=== PATIENT | male | born 1955 | race Caucasian/White ===

== ENCOUNTER 2021-02-21 16:57 | Inpatient (IN) | payer MEDICARE, MEDICAID ==
[~2021-02-21] VITALS: Ht 167.6 cm; Wt 47.7 kg
--- NOTE | 2021-02-21 17:34 | NUR ---
TO CT SCAN VIA [facility]NEST WITH TECH
[2021-02-21 18:34] LABS: BASOPHILS % (AUTO) 0.6 % (0-1); EOSINOPHILS % (AUTO) 0.1 % (0-6); HEMATOCRIT 43.5 % (42.0-52.0); HEMOGLOBIN 14.7 g/dl (14.0-17.9); LYMPHOCYTES # (AUTO) 1.1 X10'3 (1.1-4.8); LYMPHOCYTES % (AUTO) 24.2 % (21-51); MEAN CORPUSCULAR HEMOGLOBIN 33.9 PG (27.0-31.0); MEAN CORPUSCULAR HGB CONC 33.9 g/dL (33.0-36.5); MEAN CORPUSCULAR VOLUME 100.1 FL (78-98); MEAN PLATELET VOLUME 7.9 FL (7.4-10.4); MONOCYTES # (AUTO) 0.4 X10'3 (0-0.9); MONOCYTES % (AUTO) 9.7 % (2-12); NEUTROPHILS % (AUTO) 65.4 % (42-75); PLATELET COUNT 244 X10'3 (140-440); RED BLOOD COUNT 4.34 X10'6 (4.70-6.10); RED CELL DISTRIBUTION WIDTH 14.8 % (11.5-14.5); WHITE BLOOD COUNT 4.6 X10'3 (4.5-11.0)
[2021-02-21 18:38] LABS: PARTIAL THROMBOPLASTIN TIME 27 SECONDS (22-32)
[2021-02-21 18:40] LABS: ALANINE AMINOTRANSFERASE 19 U/L (12-78); ALBUMIN 3.6 G/DL (3.4-5.0); ALBUMIN/GLOBULIN RATIO 1.1 (1.1-1.5); ALKALINE PHOSPHATASE 85 IU/L (46-116); ANION GAP 12 (8-16); ASPARTATE AMINO TRANSFERASE 23 U/L (10-37); BILIRUBIN,TOTAL 0.3 MG/DL (0.1-1.0); BLOOD UREA NITROGEN 5 MG/DL (7-18); BUN/CREATININE RATIO 6.3 (5.4-32.0); CALCIUM 8.4 MG/DL (8.5-10.1); CHLORIDE 94 MMOL/L (99-107); CREATININE 0.79 MG/DL (0.60-1.10); GLUCOSE 99 MG/DL (70-104); POTASSIUM 4.3 MMOL/L (3.5-5.1); SODIUM 132 MMOL/L (135-145); TOTAL CARBON DIOXIDE 26.2 MMOL/L (24-32); eGFR > 90 ML/MIN
[2021-02-21 18:49] LABS: ETHANOL 0.217 GM/DL (0.0-0.010)
[2021-02-21] MEDS ORDERED: normal saline 1000ml 1,000 ML IV ONE (19:25)
[2021-02-21] MEDS ORDERED: NO HOME MEDS (19:46)
[2021-02-21] MEDS ORDERED: potassium Cl 40MEQ/1/2NS 520ml 520 ML IV PRN ×2 (20:30)
[2021-02-21] MEDS: normal saline 1000ml 1,000 ML IV SCH (20:30)
[2021-02-21] MEDS ORDERED: magnesium Cl slow-release 64mg tablet PO PRN (20:30)
[2021-02-21] MEDS ORDERED: magnesium 4gm in 100ml NS 100 ML IV PRN (20:30)
[2021-02-21] MEDS ORDERED: acetaminophen 325mg tablet PO PRN (20:30)
[2021-02-21] MEDS ORDERED: potassium Cl 20 mEq SR tablet PO PRN ×2 (20:30)
[2021-02-21] MEDS ORDERED: magnesium 2GM in 50ml NS 50 ML IV PRN (20:30)
[2021-02-21] MEDS: ondansetron/PF 4mg/2ml inj IV PRN (21:19)
[2021-02-21] MEDS: morphine 2 MG/ML inj. syringe IV PRN (21:20)
[2021-02-21 21:32] LABS: UA COLLECTION TYPE URINAL
[2021-02-21 21:33] LABS: CLARITY,URINE CLEAR (Clear); COLOR,URINE YELLOW (Yellow); GLUCOSE, URINE NEGATIVE (Neg); PROTEIN,URINE NEGATIVE (Neg)
[2021-02-21 21:34] LABS: KETONES,URINE NEGATIVE (Neg); LEUKOCYTE ESTERASE ,URINE NEGATIVE (Neg); NITRITES, URINE NEGATIVE (Neg); OCCULT BLOOD,URINE NEGATIVE (Neg); UROBILINOGEN,URINE 0.2 E.U/dL (0.2-1.0)
--- NOTE | 2021-02-21 21:59 | NUR ---
PT PLACED ON HOSPITAL BED WITH BUCKS TRACTIONS AT 5 LB WITH TRAPEZE.
[2021-02-22] VITALS (9 sets, daily range): BP systolic 105–153; BP diastolic 51–67
[2021-02-22] MEDS: HYDROcodone/acetaminophen 5mg/325mg tablet PO PRN ×4 (00:05→21:17)
[2021-02-22] MEDS: morphine 2 MG/ML inj. syringe IV PRN (01:55)
[2021-02-22 02:51] LABS: BASOPHILS % (AUTO) 0.4 % (0-1); EOSINOPHILS % (AUTO) 0.2 % (0-6); HEMATOCRIT 40.1 % (42.0-52.0); HEMOGLOBIN 13.2 g/dl (14.0-17.9); LYMPHOCYTES % (AUTO) 14.9 % (21-51); MEAN CORPUSCULAR HEMOGLOBIN 33.6 PG (27.0-31.0); MEAN CORPUSCULAR HGB CONC 32.8 g/dL (33.0-36.5); MEAN CORPUSCULAR VOLUME 102.4 FL (78-98); MEAN PLATELET VOLUME 8.2 FL (7.4-10.4); MONOCYTES # (AUTO) 0.8 X10'3 (0-0.9); MONOCYTES % (AUTO) 11.5 % (2-12); NEUTROPHILS # (AUTO) 4.8 X10'3 (1.8-7.7); PLATELET COUNT 240 X10'3 (140-440); RED BLOOD COUNT 3.91 X10'6 (4.70-6.10); WHITE BLOOD COUNT 6.6 X10'3 (4.5-11.0)
[2021-02-22 03:14] LABS: ALBUMIN 3.1 G/DL (3.4-5.0); ANION GAP 10 (8-16); BLOOD UREA NITROGEN 5 MG/DL (7-18); BUN/CREATININE RATIO 8.3 (5.4-32.0); CALCIUM 7.9 MG/DL (8.5-10.1); CHLORIDE 102 MMOL/L (99-107); GLUCOSE 76 MG/DL (70-104); POTASSIUM 4.1 MMOL/L (3.5-5.1); SODIUM 138 MMOL/L (135-145); TOTAL CARBON DIOXIDE 26.2 MMOL/L (24-32); eGFR > 90 ML/MIN
[2021-02-22] MEDS: ipratropium/albuterol 3ml nebule NEB SCH ×6 (03:27→23:40)
--- NOTE | 2021-02-22 05:29 | NUR ---
PT SPO2 87-89% WHILE SLEEPING, PLACED PT ON 2L NC NOW SPO2 97-98%
[2021-02-22] MEDS: normal saline 1000ml 1,000 ML IV SCH ×2 (06:48→21:14)
--- NOTE | 2021-02-22 06:55 | NUR ---
LAST TIME ATE, YESTERDAY AFTERNOON. HAD A SANDWICH
--- NOTE | 2021-02-22 07:00 | NUR ---
DR. LIRA AT BEDSIDE, DISCUSSING SURGERY WITH PT.
--- NOTE | 2021-02-22 07:59 | NUR ---
SHONDA PTS MOTHER CALLED [phone]. LET HER KNOW HE WILL BE GOING TO SURGERY THIS AM.
[2021-02-22] MEDS: docusate sod 100mg capsule PO SCH ×2 (08:00→21:14)
[2021-02-22] MEDS: K and/or MAG REPLACEMENT MC SCH ×2 (08:00→20:00)
[2021-02-22] MEDS ORDERED: haloperidol lactate 5mg/ml inj IM PRN (08:55)
[2021-02-22] MEDS ORDERED: haloperidol 5mg tablet PO PRN (08:55)
[2021-02-22] MEDS ORDERED: LORazepam 2 mg/ml vial IV PRN (08:55)
--- NOTE | 2021-02-22 09:12 | NUR ---
FRANCHESKA FROM OR CALLED AND REPORT GIVEN
--- NOTE | 2021-02-22 09:21 | NUR ---
OR TECH HERE PT TRANSPORTED TO OR.
[2021-02-22] MEDS ORDERED: MIDAZolam 1 MG/ML 5ML VIAL ONE (09:38)
[2021-02-22] MEDS ORDERED: fentaNYL/PF 50MCG/1 ML 2ML syringe ONE (09:38)
[2021-02-22] MEDS ORDERED: meperidine/PF 25mg/ml syringe IV PRN ×3 (09:40)
[2021-02-22] MEDS ORDERED: ringers solution, lacted 1,000 ML IV SCH (09:40)
[2021-02-22] MEDS ORDERED: morphine 4 MG/ML inj SYRINge IV PRN (09:40)
[2021-02-22] MEDS ORDERED: proCHLORperazine 10 MG/2 ml inj IV PRN (09:40)
[2021-02-22] MEDS ORDERED: morphine 2 MG/ML inj. syringe IV PRN (09:40)
[2021-02-22] MEDS ORDERED: ondansetron/PF 4mg/2ml inj IV PRN (09:40)
[2021-02-22] MEDS ORDERED: ceFAZolin 1000mg inj ONE ×2 (10:17)
--- NOTE | 2021-02-22 10:25 | NUR ---
FReceived from OR via ORTHO BED WITH LEE , accompanied by Anesthesiologist BRYANNA and report given by Anesthesiolgist. PATIENT IWTH 20G PIV IN RIGHT UE RUNNING LR AT 100.D KE PAIN. SENSATION FROM SPINAL ANESTHESIA IS AT L1 AT THIS TIME. RIGHT HIP SITE WITH 2 BANDAIDS PRESENT THAT ARE CDI. + DP PRESENT TO ANTERIOR OF RIGHT FOOT.DENIES PAIN Addendum: 02/22/21 at 1045 by Giacomo Higuera RN, RN Amended: Links added.
[2021-02-22] MEDS ORDERED: HYDROcodone/acetaminophen 5mg/325mg tablet PO PRN (10:35)
--- NOTE | 2021-02-22 11:25 | NUR ---
ALL DC CRITERIA TO THE FLOOR HAS BEEN MET. DRESSING CDI. VSS. DENIES PAIN. BED LOW AND CALL LIGHT PRESENT. PATIENTS JUAN CARLOS PERRY PRESENT TO ACCEPT CARE AND AIDE PRESENT TO SET UP VS MACHINE. Addendum: 02/22/21 at 1133 by Giacomo Saucedo - JUAN CARLOS RANGEL Amended: Links added.
[2021-02-22] MEDS: nicotine 14mg patch - 24hr TD SCH (14:55)
[2021-02-22] MEDS: ceFAZolin/D5W- 1GM premix 50 ML IV SCH ×2 (16:02→23:52)
--- NOTE | 2021-02-22 16:21 | NUR ---
Right hip bandages were bleeding, bandages changed and pressure dressing applied as per advise of charge nurse Randi. Will monitor
--- NOTE | 2021-02-22 18:37 | NUR ---
Problems reprioritized. Patient report given, questions answered & plan of care reviewed with Pat RN.
[2021-02-23] VITALS: BP 145/65
[2021-02-23] MEDS: HYDROcodone/acetaminophen 5mg/325mg tablet PO PRN ×2 (01:17→05:27)
[2021-02-23] MEDS: normal saline 1000ml 1,000 ML IV SCH ×3 (02:30→23:30)
[2021-02-23] MEDS: ipratropium/albuterol 3ml nebule NEB SCH ×6 (03:36→23:12)
[2021-02-23 05:21] VITALS: BP 139/58
[2021-02-23 06:15] LABS: BASOPHILS % (AUTO) 0.6 % (0-1); EOSINOPHILS % (AUTO) 0.5 % (0-6); LYMPHOCYTES # (AUTO) 1.1 X10'3 (1.1-4.8); LYMPHOCYTES % (AUTO) 20.5 % (21-51); MEAN CORPUSCULAR HEMOGLOBIN 34.5 PG (27.0-31.0); MEAN CORPUSCULAR HGB CONC 33.2 g/dL (33.0-36.5); MEAN CORPUSCULAR VOLUME 103.9 FL (78-98); MEAN PLATELET VOLUME 8.4 FL (7.4-10.4); MONOCYTES # (AUTO) 0.9 X10'3 (0-0.9); MONOCYTES % (AUTO) 16.5 % (2-12); NEUTROPHILS # (AUTO) 3.2 X10'3 (1.8-7.7); NEUTROPHILS % (AUTO) 61.9 % (42-75); PLATELET COUNT 183 X10'3 (140-440); RED BLOOD COUNT 3.18 X10'6 (4.70-6.10); RED CELL DISTRIBUTION WIDTH 14.6 % (11.5-14.5); WHITE BLOOD COUNT 5.2 X10'3 (4.5-11.0)
[2021-02-23 06:57] LABS: ALBUMIN 2.5 G/DL (3.4-5.0); AMYLASE 34 U/L (25-115); ANION GAP 5 (8-16); BLOOD UREA NITROGEN 4 MG/DL (7-18); BUN/CREATININE RATIO 6.6 (5.4-32.0); CALCIUM 7.6 MG/DL (8.5-10.1); CHLORIDE 100 MMOL/L (99-107); CREATININE 0.61 MG/DL (0.60-1.10); GLUCOSE 124 MG/DL (70-104); LIPASE < 50 U/L (73-393); MAGNESIUM 1.8 MG/DL (1.5-2.4); POTASSIUM 3.6 MMOL/L (3.5-5.1); SODIUM 135 MMOL/L (135-145); TOTAL CARBON DIOXIDE 29.7 MMOL/L (24-32); eGFR > 90 ML/MIN
[2021-02-23 08:00] VITALS: BP 146/61
[2021-02-23] MEDS: folic acid 1mg tablet PO SCH (08:31)
[2021-02-23] MEDS: multivitamins, therapeutics tablet PO SCH (08:31)
[2021-02-23] MEDS: docusate sod 100mg capsule PO SCH ×2 (08:32→19:26)
[2021-02-23] MEDS: nicotine 14mg patch - 24hr TD SCH (08:32)
[2021-02-23] MEDS: thiamine 100mg tablet PO SCH (08:32)
[2021-02-23] MEDS: ondansetron/PF 4mg/2ml inj IV PRN (08:34)
[2021-02-23] MEDS: K and/or MAG REPLACEMENT MC SCH ×2 (08:44→20:00)
[2021-02-23 11:00] VITALS: BP 160/64
[2021-02-23] MEDS ORDERED: hydrALAZINE 20mg/ml inj. IV PRN (15:50)
--- NOTE | 2021-02-23 18:18 | NUR ---
Patient in room OG 357A. I have received report from JUAN CARLOS Peck and had the opportunity to ask questions and assume patient care.
--- NOTE | 2021-02-23 18:28 | NUR ---
Problems reprioritized. Patient report given, questions answered & plan of care reviewed with Charlotte RANGEL.
[2021-02-23 20:00] VITALS: BP 132/62
[2021-02-24 00:05] VITALS: BP 178/64
[2021-02-24] MEDS: ipratropium/albuterol 3ml nebule NEB SCH (03:00)
[2021-02-24] MEDS ORDERED: ipratropium/albuterol 3ml nebule NEB PRN (04:40)
--- NOTE | 2021-02-24 06:48 | NUR ---
Problems reprioritized. Patient report given, questions answered & plan of care reviewed with JUAN CARLOS Peck.
[2021-02-24 07:09] LABS: BASOPHILS % (AUTO) 0.2 % (0-1); EOSINOPHILS % (AUTO) 0.3 % (0-6); HEMATOCRIT 32.1 % (42.0-52.0); HEMOGLOBIN 10.7 g/dl (14.0-17.9); LYMPHOCYTES % (AUTO) 14.8 % (21-51); MEAN CORPUSCULAR HEMOGLOBIN 34.3 PG (27.0-31.0); MEAN CORPUSCULAR HGB CONC 33.2 g/dL (33.0-36.5); MEAN CORPUSCULAR VOLUME 103.2 FL (78-98); MEAN PLATELET VOLUME 8.4 FL (7.4-10.4); MONOCYTES # (AUTO) 0.8 X10'3 (0-0.9); MONOCYTES % (AUTO) 12.7 % (2-12); NEUTROPHILS # (AUTO) 4.7 X10'3 (1.8-7.7); PLATELET COUNT 188 X10'3 (140-440); RED BLOOD COUNT 3.11 X10'6 (4.70-6.10); RED CELL DISTRIBUTION WIDTH 14.6 % (11.5-14.5); WHITE BLOOD COUNT 6.5 X10'3 (4.5-11.0)
[2021-02-24 07:28] LABS: ALBUMIN 2.2 G/DL (3.4-5.0); AMYLASE 30 U/L (25-115); ANION GAP 8 (8-16); BLOOD UREA NITROGEN 6 MG/DL (7-18); BUN/CREATININE RATIO 11.3 (5.4-32.0); CALCIUM 8.1 MG/DL (8.5-10.1); CHLORIDE 103 MMOL/L (99-107); CREATININE 0.53 MG/DL (0.60-1.10); GLUCOSE 104 MG/DL (70-104); LIPASE 51 U/L (73-393); MAGNESIUM 1.9 MG/DL (1.5-2.4); PHOSPHORUS 2.7 MG/DL (2.3-4.5); POTASSIUM 3.9 MMOL/L (3.5-5.1); SODIUM 139 MMOL/L (135-145); TOTAL CARBON DIOXIDE 28.3 MMOL/L (24-32); eGFR > 90 ML/MIN
[2021-02-24 08:00] VITALS: BP 146/65
[2021-02-24] MEDS: docusate sod 100mg capsule PO SCH ×2 (08:24→20:14)
[2021-02-24] MEDS: multivitamins, therapeutics tablet PO SCH (08:24)
[2021-02-24] MEDS: nicotine 14mg patch - 24hr TD SCH (08:24)
[2021-02-24] MEDS: thiamine 100mg tablet PO SCH (08:24)
[2021-02-24] MEDS: folic acid 1mg tablet PO SCH (08:25)
[2021-02-24] MEDS: normal saline 1000ml 1,000 ML IV SCH ×3 (08:28→22:24)
[2021-02-24] MEDS: K and/or MAG REPLACEMENT MC SCH ×2 (08:30→20:00)
[2021-02-24] MEDS ORDERED: LORazepam 1 MG tablet PO PRN (08:55)
[2021-02-24] MEDS ORDERED: LORazepam 2 mg/ml vial IV PRN (08:55)
[2021-02-24 11:00] VITALS: BP 169/75
[2021-02-24 18:00] VITALS: BP 143/69
--- NOTE | 2021-02-24 18:31 | NUR ---
Problems reprioritized. Patient report given, questions answered & plan of care reviewed with Kirstie RANGEL.
--- NOTE | 2021-02-24 18:45 | NUR ---
Patient in room OG 357. I have received report from Liv RANGEL and had the opportunity to ask questions and assume patient care.
[2021-02-25] VITALS: BP 155/76
--- NOTE | 2021-02-25 06:07 | NUR ---
Problems reprioritized. Patient report given, questions answered & plan of care reviewed with Skinny RN.
[2021-02-25 06:39] LABS: BASOPHILS % (AUTO) 0.4 % (0-1); EOSINOPHILS % (AUTO) 0.6 % (0-6); HEMATOCRIT 32.5 % (42.0-52.0); HEMOGLOBIN 10.7 g/dl (14.0-17.9); LYMPHOCYTES # (AUTO) 1.3 X10'3 (1.1-4.8); LYMPHOCYTES % (AUTO) 20.3 % (21-51); MEAN CORPUSCULAR HEMOGLOBIN 33.7 PG (27.0-31.0); MEAN CORPUSCULAR HGB CONC 32.8 g/dL (33.0-36.5); MEAN CORPUSCULAR VOLUME 102.9 FL (78-98); MEAN PLATELET VOLUME 8.4 FL (7.4-10.4); MONOCYTES # (AUTO) 0.9 X10'3 (0-0.9); MONOCYTES % (AUTO) 14.9 % (2-12); NEUTROPHILS % (AUTO) 63.8 % (42-75); PLATELET COUNT 246 X10'3 (140-440); RED BLOOD COUNT 3.16 X10'6 (4.70-6.10); WHITE BLOOD COUNT 6.2 X10'3 (4.5-11.0)
[2021-02-25 07:00] VITALS: BP 156/71
[2021-02-25 07:11] LABS: ALBUMIN 2.2 G/DL (3.4-5.0); AMYLASE 39 U/L (25-115); ANION GAP 5 (8-16); BLOOD UREA NITROGEN 7 MG/DL (7-18); BUN/CREATININE RATIO 12.5 (5.4-32.0); CALCIUM 8.3 MG/DL (8.5-10.1); CHLORIDE 104 MMOL/L (99-107); CREATININE 0.56 MG/DL (0.60-1.10); GLUCOSE 89 MG/DL (70-104); LIPASE 109 U/L (73-393); MAGNESIUM 1.9 MG/DL (1.5-2.4); PHOSPHORUS 3.3 MG/DL (2.3-4.5); POTASSIUM 3.9 MMOL/L (3.5-5.1); SODIUM 140 MMOL/L (135-145); TOTAL CARBON DIOXIDE 30.9 MMOL/L (24-32); eGFR > 90 ML/MIN
[2021-02-25] MEDS: K and/or MAG REPLACEMENT MC SCH (08:00)
[2021-02-25] MEDS: docusate sod 100mg capsule PO SCH (08:45)
[2021-02-25] MEDS: thiamine 100mg tablet PO SCH (08:45)
[2021-02-25] MEDS: folic acid 1mg tablet PO SCH (08:45)
[2021-02-25] MEDS: multivitamins, therapeutics tablet PO SCH (08:45)
[2021-02-25] MEDS: nicotine 14mg patch - 24hr TD SCH (08:46)
--- NOTE | 2021-02-25 13:38 | NUR ---
Problems reprioritized. Patient report given, questions answered & plan of care reviewed with Dominga RANGEL at [facility]. Pt is A & Ox4 and in no apparent distress. Pt's belongings were send with EMS transport. IV removed intact.
[2021-02-26] MEDS ORDERED: LORazepam 1 MG tablet PO PRN (08:55)
[2021-02-26] MEDS ORDERED: LORazepam 2 mg/ml vial IV PRN (08:55)
== END 2021-02-25 13:25 | DRG 481 ==
LOC: ER 16:58 → ED HOLD 20:36 → SUR 3N 02-22 11:28
PROVIDERS: ADMIT Internal Medicine; ATTEND Internal Medicine
PROC: 0QS606Z Reposition Right Upper Femur with Intramedullary Internal Fixation Device, Open Approach (ICD-10-PCS; principal; 2021-02-22 09:35)
DX: S72.141A Displaced intertrochanteric fracture of right femur, initial encounter for closed fracture (principal); E87.1 Hypo-osmolality and hyponatremia; Z20.822 Contact with and (suspected) exposure to COVID-19; W01.0XXA Fall on same level from slipping, tripping and stumbling without subsequent striking against object, initial encounter; F17.210 Nicotine dependence, cigarettes, uncomplicated; J44.9 Chronic obstructive pulmonary disease, unspecified; F10.229 Alcohol dependence with intoxication, unspecified; Y93.01 Activity, walking, marching and hiking; M81.0 Age-related osteoporosis without current pathological fracture; R03.0 Elevated blood-pressure reading, without diagnosis of hypertension; Z79.82 Long term (current) use of aspirin; Y92.098 Other place in other non-institutional residence as the place of occurrence of the external cause; Y99.8 Other external cause status; Z88.5 Allergy status to narcotic agent; Z71.6 Tobacco abuse counseling
CPT/HCPCS: 36415; 70450; 71045; 72125; 73502; 73551; 73700; 76000; 80048; 80053; 80320; 81003; 82150; 82948; 83690; 83735; 84100; 85025; 85610; 85730; 86885; 86900; 86901; 87635; 93005; 94640; 94760; 96360; 97110; 97116; 97162; 97530; 99285; A6222; A6455; C1713; C9803; G0378; J0690; J2250; J2270; J2405; J3010; J7030; J7120

== ENCOUNTER 2024-04-03 09:09 | Outpatient (CLI) | payer MEDICARE, OTHER ==
[~2024-04-03 09:09] MED LIST: NO HOME MEDS
[2024-04-03 10:34] LABS: GLUCOSE 97 MG/DL (70-104)
[2024-04-03 10:39] LABS: ALBUMIN 3.6 G/DL (3.4-5.0); ANION GAP 0 (8-16); BLOOD UREA NITROGEN 13 MG/DL (7-18); BUN/CREATININE RATIO 16.7 (10.0-20.0); CALCIUM 8.9 MG/DL (8.5-10.1); CHLORIDE 97 MMOL/L (99-107); CREATININE 0.78 MG/DL (0.60-1.10); POTASSIUM 4.5 MMOL/L (3.5-5.1); SODIUM 135 MMOL/L (135-145); TOTAL CARBON DIOXIDE 37.9 MMOL/L (24-32); eGFR > 90 ML/MIN
[2024-04-03] MEDS ORDERED: iohexol 350 MG/ML 50ML vial IV ONE (11:36)
[2024-04-03] MEDS ORDERED: iohexol 350MG/ML 100ml bottle IV ONE (11:36)
== END 2024-04-03 23:59 | disposition home or self-care (01) ==
LOC: RAD 09:09
PROVIDERS: ATTEND Internal Medicine Interventional Cardiology
DX: I70.213 Atherosclerosis of native arteries of extremities with intermittent claudication, bilateral legs (principal); J43.9 Emphysema, unspecified; J98.6 Disorders of diaphragm; E78.5 Hyperlipidemia, unspecified
CPT/HCPCS: 36415; 75635; 80048; Q9967